=== PATIENT | male | born 1970 | race Caucasian/White ===

== ENCOUNTER 2017-03-24 05:41 | Emergency (ER) | payer BC ==
--- NOTE | 2017-03-24 06:05 | Emergency Department Record ---
History of Present Illness - General Chief complaint: Abscess Stated complaint: ABSCESS Time Seen by Provider: 03/24/17 05:57 Source: Patient Mode of Arrival: Ambulatory Limitations: No limitations - History of Present Illness Initial comments: 46 yo male presents to ED with a CC of swelling and pain to the right perineal region for the past 4 days. Patient the area started off as a small area of pain and has progressively worsened over the past 48 hours. Patient denies fevers, chills, nausea, or vomiting symptoms. Patient denies health problems at his baseline but admits that he has not been to a physician in many years. MD complaint: Abscess/boil Onset/Timin -: Days(s) Location: Buttocks, Genitals Severity: Mild Quality: Other Consistency: Constant Improves with: None Worsens with: None Context: None Associated symptoms: Denies other symptoms Treatments Prior to Arrival: None - Related Data Allergies Allergy/AdvReac Type Severity Reaction Status Date / Time No Known Allergies Allergy Unverified 11/12/15 13:18 Travel Screening - Travel/Exposure Within Last 30 Days Have you traveled within the last 30 days?: No - Travel/Exposure Within Last Year Have you traveled outside the [place] in the last year?: No - Additonal Travel Details Have you been exposed to anyone with a communicable illness?: No - Travel Symptoms Symptom Screening: None Review of Systems Constitutional: Denies: Chills, Fever, Malaise, Night sweats Eyes: Denies: Eye discharge, Eye pain ENT: Denies: Congestion, Ear pain, Epistaxis Respiratory: Denies: Cough, Dyspnea Cardiovascular: Denies: Chest pain, Dyspnea on exertion Endocrine: Denies: Fatigue, Heat or cold intolerance Gastrointestinal: Denies: Constipation, Diarrhea, Nausea, Vomiting Genitourinary: Denies: Incontinence, Retention, Testicular pain, Testicular mass Musculoskeletal: Denies: Arthralgia, Back pain, Gout, Joint swelling Skin: Reports: Other (swelling and pain to the left inguinal region). Denies: Bruising, Change in color Neurological: Denies: Abnormal gait, Confusion, Headache, Seizure Psychiatric: Denies: Anxiety Hematological/Lymphatic: Denies: Anemia, Blood Clots Past Medical History - SOCIAL HISTORY Smoking Status: Current every day smoker Alcohol Use: None Drug Use: None - RESPIRATORY Hx Respiratory Disorders: No - CARDIOVASCULAR Hx Cardio Disorders: No - NEURO Hx Neuro Disorders: No - GI Hx GI Disorders: No - Hx Genitourinary Disorders: No - ENDOCRINE Hx Endocrine Disorders: No - MUSCULOSKELETAL Hx Musculoskeletal Disorders: No - PSYCH Hx Psych Problems: No - HEMATOLOGY/ONCOLOGY Hx Hematology/Oncology Disorders: No Family Medical History Any Significant Family History?: No Physical Exam - General General Appearance: Alert, Oriented x3, Cooperative, No acute distress Limitations: No limitations - Head Head exam: Atraumatic, Normocephalic, Normal inspection Head exam detail: negative: Abrasion, Contusion, Freitas's sign, General tenderness, Hematoma, Laceration - Eye Eye exam: Normal appearance. negative: Conjunctival injection, Periorbital swelling, Periorbital tenderness, Scleral icterus - ENT Ear exam: negative: Auricular hematoma, Auricular trauma Nasal Exam: negative: Active bleeding, Discharge, Dried blood, Foreign body Mouth exam: negative: Drooling, Laceration, Muffled voice, Tongue elevation - Neck Neck exam: Normal inspection. negative: Meningismus, Tenderness - Respiratory Respiratory exam: Normal lung sounds bilaterally. negative: Rales, Respiratory distress, Rhonchi, Stridor - Cardiovascular Cardiovascular Exam: Regular rate, Normal rhythm, Normal heart sounds - GI/Abdominal GI/Abdominal exam: Soft. negative: Rebound, Rigid, Tenderness - Rectal Rectal exam: Deferred - exam: Other (STS and induration to the right perineal region c/w abscess extending into the scrotal region on examination, approximately 11x5 cm.). negative: Scrotal swelling, Testicular tenderness - Extremities Extremities exam: Normal inspection. negative: Calf tenderness, Pedal edema, Tenderness - Back Back exam: Denies: CVA tenderness (R), CVA tenderness (L) - Neurological Neurological exam: Alert, Normal gait, Oriented X3 - Psychiatric Psychiatric exam: Normal affect, Normal mood - Skin Skin exam: negative: Abrasion Type of lesion: negative: abrasion Course Vital Signs 03/24/17 05:45 Temperature 98.6 F Pulse Rate [ 115 H Pulse Ox Probe] Respiratory 20 Rate Blood Pressure 123/88 [Left Arm] Pulse Ox 95 - Reevaluation(s) Reevaluation #1: 03/24/17 06:35 Labs reviewed, WBC 16.8, Glucose 311. Labs reviewed and are otherwise grossly unremarkable for an acute process. Patient is going to CT at this time. Reevaluation #2: 03/24/17 07:41 CT Abdomen and Pelvis: Stranding into the right unguinal region extending into the scrotal region suggestive of cellulitis. Patient was updated on all results, Invanz ordered to initiate treatment, and [facility] has been contacted for transfer. Reevaluation #3: 03/24/17 07:56 Case was discussed with Dr. Hilliard, will accept transfer. Patient was updated on all results and the plan for transfer upon receipt of a bed number. Medical Decision Making - Lab Data Result diagrams: 03/24/17 06:05 03/24/17 06:05 Disposition Disposition: Transfer Clinical Impression: New onset type 2 diabetes mellitus, Cellulitis of perineum Disposition: Acute Care Hospital Transfer Transfer To: [facility] Reason For Transfer: Urological surgical consultation, New onset DM Accepting Physician: Babak Time Discussed w/Accepting Physician: 07:44 Condition: (2) Stable Forms: Patient Portal Access Time of Disposition: 07:44
[2017-03-24] MEDS: 0.9 % SODIUM CHLORIDE 1000ML 1,000 ML IV SCH (06:10)
[2017-03-24 06:18] LABS: BASO % 0.2 % (0-6); EOS % 0.8 % (0-6); GRAN % 77.1 % (47-80); HEMATOCRIT 48.5 % (42.0-52.0); HEMOGLOBIN 16.5 gm/dl (14.0-18.0); LYMPH % 10.4 % (16-45); MEAN CELL VOLUME 85.8 fl (81-97); MEAN CORPUSCULAR HEMOGLOBIN 29.2 pg (27-33); MEAN PLATELET VOLUME 10.5 fl (7.4-10.4); MONO % 11.5 % (0-9); PLATELET COUNT 186 K/uL (130-400); RED BLOOD COUNT 5.65 M/uL (4.40-5.70); WHITE BLOOD COUNT W/O DIFF 16.8 K/uL (4.2-12.2)
[2017-03-24 06:26] LABS: ALB/GLOB RATIO 1.2 (1.1-1.8); ALBUMIN 4.1 gm/dL (3.5-5.0); ALKALINE PHOSPHATASE 79 U/L (38-126); ALT/SGPT 31 U/L (21-72); ANION GAP 8.9 (7-16); AST/SGOT 14 U/L (17-59); BLOOD UREA NITROGEN 11 mg/dL (9-20); CARBON DIOXIDE 26.1 mmol/L (22-30); CREATININE 0.9 mg/dL (0.66-1.25); EST GLOMERULAR FILTRATION RATE > 60 ml/min; GLUCOSE,RANDOM 311 mg/dL (70-110); TOTAL PROTEIN 7.4 gm/dL (6.3-8.2)
[2017-03-24] MEDS: ERTAPENEM SODIUM 1 G in 0.9 % SODIUM CHLORIDE 100ML 100 ML IVPB ONE (07:34)
--- NOTE | 2017-03-25 08:03 | CT SCAN REPORT ---
EXAM: CT OF THE PELVIS WITH CONTRAST HISTORY: MASS BETWEEN LEGS. TECHNIQUE: Sequential axial images were obtained through the pelvis after intravenous administration of 100 ml of Omnipaque 300 contrast material. Sagittal and coronal reformatted images were performed. FINDINGS: There is scrotal edema. There is inflammatory change of the peroneum. No abnormal gas collection. The visceral structures within the pelvis appear normal. The osseous structures appear normal. IMPRESSION: FINDINGS SUGGESTIVE OF CELLULITIS INVOLVING THE PERONEUM AND SCROTUM. THERE ARE BILATERAL HYDROCELES. INCIDENTAL NOTE IS MADE OF BORDERLINE PROMINENT RIGHT INGUINAL LYMPH NODES. NO GAS COLLECTION IS PRESENT. JOB NUMBER: [id number] MTDD
== END 2017-03-24 11:02 | disposition short-term general hospital (02) ==
LOC: ER 05:41
DX: L03.315 Cellulitis of perineum (principal); E11.9 Type 2 diabetes mellitus without complications
CPT/HCPCS: 99285 ×2; 96374; 85025; 80053; 72193; Q9967; J1335; J7030

== ENCOUNTER 2017-06-06 17:14 | Emergency (ER) | payer BC ==
[2017-06-06] MEDS ORDERED: IBUPROFEN 600 MG TABLET PO ONE (17:58)
--- NOTE | 2017-06-06 18:11 | Emergency Department Record ---
History of Present Illness - General Chief complaint: Extremity Problem Stated complaint: RT ARM INJURY Time Seen by Provider: 06/06/17 17:55 Source: Patient Mode of Arrival: Ambulatory Limitations: No limitations - History of Present Illness Initial comments: The patient is here due to R arm pain. He was lifting a heavy object about an hour ago and felt pain and a tear in his R elbow bicep area anteriorly. Now he is unable to flex at his R elbow. Complaint: Extremity pain Onset/Timin -: Minutes(s) Location: Right, Arm History of Same: No Radiation: Distal Quality: Aching Consistency: Constant Improves with: Nothing Worsens with: Nothing Associated Symptoms: Denies other symptoms - Related Data Home Medications Medication Instructions Recorded Confirmed Last Taken Metformin HCl [Metformin HCl] 500 mg PO BID 06/06/17 06/06/17 06/06/17 Allergies Allergy/AdvReac Type Severity Reaction Status Date / Time No Known Allergies Allergy no Verified 06/06/17 18:17 allergies Travel Screening - Travel/Exposure Within Last 30 Days Have you traveled within the last 30 days?: No Review of Systems Constitutional: Denies: Chills, Fever Eyes: Denies: Eye discharge Past Medical History - SOCIAL HISTORY Smoking Status: Current every day smoker Alcohol Use: None Drug Use: None - RESPIRATORY Hx Respiratory Disorders: No - CARDIOVASCULAR Hx Cardio Disorders: No - NEURO Hx Neuro Disorders: No - GI Hx GI Disorders: No - Hx Genitourinary Disorders: No - ENDOCRINE Hx Endocrine Disorders: No - MUSCULOSKELETAL Hx Musculoskeletal Disorders: No - PSYCH Hx Psych Problems: No - HEMATOLOGY/ONCOLOGY Hx Hematology/Oncology Disorders: No Family Medical History Any Significant Family History?: No Physical Exam - General General Appearance: Alert, Cooperative, No acute distress - Head Head exam: Atraumatic, Normocephalic, Normal inspection - Eye Eye exam: Normal appearance, PERRL - Extremities Extremities exam: Normal capillary refill, Tenderness (There is tenderness at the distal anterior arm area just above the elbow. There is an obvious defect at the bicep insertion. The patient is not able to flex his R elbow.), Other ( The R arm is NVI distally.). negative: Normal inspection, Full ROM - Neurological Neurological exam: Alert. negative: Motor sensory deficit Course Vital Signs 06/06/17 17:25 Temperature 98.5 F Pulse Rate 96 H Respiratory 20 Rate Blood Pressure 143/89 Pulse Ox 98 - Reevaluation(s) Reevaluation #1: The patient is doing very well at this time. I did explain to him that it appears that he has a bicep tendon rupture. He will be referred to Dr. Nance and should be seen this week. I did consult with Dr. Nance and he can see him this week in [facility]. 06/06/17 18:32 Medical Decision Making - Data Complexity MDM Data: X-Ray Ordered and/or Reviewed (R elbow: No bony abnormality.) Disposition Disposition: Discharge Clinical Impression: Biceps tendon rupture Disposition: Home, Self-Care Condition: (1) Good Instructions: Tendon Rupture (ED) Additional Instructions: Please use ice to the R arm area if needed and take Tylenol or Motrin for pain. Please use the R arm sling at all times. Please see Dr. Nance in the [facility] later this week. Return to the ER for any problems. Referrals: [facility] [Provider Group] DORYS NANCE [DOCTOR OF OSTEOPATH] - Forms: Patient Portal Access Time of Disposition: 18:35 Quality - Quality Measures Quality Measures: N/A - Blood Pressure Screening View Details: Yes Does Patient Have Any of the Following: No Blood Pressure Classification: Hypertensive Reading Systolic Measurement: 131 Diastolic Measurement: 97 Screening for High Blood Pressure: < Pre-Hypertensive BP, F/U Documented > [ G8950] Pre-Hypertensive Follow-up Interventions: Referral to alternative/primary care provider.
--- NOTE | 2017-06-07 09:18 | RADIOLOGY REPORT ---
EXAM: RIGHT ELBOW, THREE VIEWS HISTORY: PAIN AND WEAKNESS POST LIFTING INJURY. TECHNIQUE: AP, oblique and lateral views of the right elbow were obtained. Comparison: None. Encounter: Initial. FINDINGS: There is normal bone mineralization. No acute fracture, dislocation , or destructive bone lesion is seen. Minor degenerative changes of the medial compartment are identified. The articular relations are otherwise maintained. No anterior nor posterior fat pad sign is seen. On the lateral view, the biceps brachii muscle appears somewhat prominent. This configuration can be seen with biceps brachii tendon rupture. IMPRESSION: 1. NO ACUTE FRACTURE NOR DISLOCATION. 2. SOFT TISSUE DENSITY PROMINENCE AT THE EXPECTED LEVEL OF THE BICEPS BRACHII MUSCLE AT THE MID HUMERUS LEVEL. THIS CONFIGURATION CAN BE SEEN WITH TENDON RUPTURE. JOB NUMBER: [id number] MTDD
== END 2017-06-06 18:44 | disposition home or self-care (01) ==
LOC: ER 17:14
DX: S46.211A Strain of muscle, fascia and tendon of other parts of biceps, right arm, initial encounter (principal); X50.0XXA Overexertion from strenuous movement or load, initial encounter
CPT/HCPCS: 99283

== ENCOUNTER 2017-06-16 08:15 | Day surgery (SDC) | payer BC ==
[~2017-06-16 08:15] MED LIST: ACETAMINOPHEN 1,000 MG/100 ML BTL IV ONE; CEFAZOLIN 2 Gram 2 GM/50 ML BAG IVPB ONE
[2017-06-16 08:49] LABS: BASO % 0.5 % (0-6); EOS % 2.7 % (0-6); HEMATOCRIT 52.3 % (42.0-52.0); LYMPH % 20.8 % (16-45); MEAN CELL VOLUME 86.3 fl (81-97); MEAN CORPUSCULAR HEMOGLOBIN 29.7 pg (27-33); MEAN CORPUSCULAR HGB CONC 34.4 g/dl (32-36); MEAN PLATELET VOLUME 10.1 fl (7.4-10.4); PLATELET COUNT 226 K/uL (130-400); RED BLOOD COUNT 6.06 M/uL (4.40-5.70); RED CELL DISTRIBUTION WIDTH 13.3 % (11.5-14.5); WHITE BLOOD COUNT W/O DIFF 11.1 K/uL (4.2-12.2)
[2017-06-16] MEDS ORDERED: HYDROCODONE/APAP 7.5/325MG TABLET PO ONE (14:23)
[2017-06-16] MEDS ORDERED: HYDROMORPHONE HCL 2 MG/ML VIAL IV ONE (14:23)
[2017-06-16] MEDS ORDERED: SEVOFLURANE 250 ML INH ONE (14:37)
[2017-06-16] MEDS ORDERED: LIDOCAINE 2% MDV (20MG/ML) 20ML VIAL IV ONE (14:37)
[2017-06-16] MEDS ORDERED: SUFENTANIL CITRATE 50 MCG/ML AMPUL IV ONE (14:37)
[2017-06-16] MEDS ORDERED: PROPOFOL 10 MG/ML VIAL IV ONE (14:37)
[2017-06-16] MEDS ORDERED: EPHEDRINE SULFATE 50 MG/ML ML IV ONE (14:37)
--- NOTE | 2017-06-21 14:10 | Operative Note ---
DATE OF SURGERY: 06/16/2017 Surgeon: Jack Tomlinson DO PREOPERATIVE DIAGNOSIS: Distal rupture of the biceps tendon of the right arm. POSTOPERATIVE DIAGNOSIS: Distal rupture of the biceps tendon of the right arm. OPERATION: Open repair of biceps tendon rupture, right arm (distal). DESCRIPTION OF PROCEDURE: This 46-year-old male was taken to the operating room, placed in the supine position on the operating room table. A general anesthetic was administered and the right upper extremity was elevated, prepped with Hibiclens, and draped in the usual sterile fashion. A incision was made in the anterior aspect of the elbow and dissection was carried down through the skin and subcutaneous tissue. Hemostasis obtained with the electrocautery. The fascia was incised and the biceps tendon immediately identified. A small seroma was present there and this was evacuated. The tendon was debrided to healthy-appearing tendon and a Krackow-type stitch was placed in the tendon with #2 FiberWire. Once this had been accomplished, we then directed our attention to the posterior aspect of the elbow, and the tendon was wrapped in a moist saline sponge. An incision was made and dissection was carried down through the skin and subcutaneous tissue overlying the midpoint between the radius and the ulna, and dissection was carried down through the muscle fascia which was divided in line with the skin incision. The muscle fibers were split over the tuberosity of the radius. Once this was easily identified, it was debrided and a reamer was used to ream a hole in the tuberosity for incorporation of the insertion of the biceps tendon. Two small holes were drilled in the back wall and a Hewson suture passer was used to pass through these holes. The sutures on the tendon were grasped and pulled through the elbow to their anatomic attachment. Then a single limb of each one of the sutures was passed through one of the two different drill holes in the opposite site of the radius opposite the tuberosity. Then, the arm was rotated to allow the tendon to fall into this previously made defect. The sutures were pulled tight to hold the tendon into the radius. Once this had been accomplished, the sutures were tied over a bony bridge on the opposite surface of the tuberosity, and then the suture was cut and removed. This gave us excellent hinduism of the anatomic position and alignment of the tendon. Both wounds were irrigated with lactated Ringer's solution and hemostasis obtained with the electrocautery. The dorsal fascia was closed with 4-0 Vicryl, subcutaneous tissue closed with the same suture, and skin with a running 4-0 nylon suture. The anterior incision was also closed with 4-0 Vicryl in the subcutaneous tissue and the skin closed with a running 4-0 nylon suture. Sterile dressings with plaster splint immobilization were applied with the elbow at 90 degrees and the forearm in mid pronation/supination. GROSS PATHOLOGY: This patient had a rupture of the biceps tendon off of the tuberosity of the radius which was repaired with a 2-incision technique as described above. ALBERTO
== END 2017-06-16 13:10 | disposition home or self-care (01) ==
LOC: SUR 08:15
PROVIDERS: ATTEND Orthopaedic Surgery
DX: S46.211A Strain of muscle, fascia and tendon of other parts of biceps, right arm, initial encounter (principal); E11.9 Type 2 diabetes mellitus without complications; Z79.84 Long term (current) use of oral hypoglycemic drugs
CPT/HCPCS: 23440; 01610; 85025; J1170; J0690

== ENCOUNTER 2017-09-08 08:33 | Emergency (ER) | payer BC, OTHER ==
[2017-09-08] MEDS ORDERED: IBUPROFEN 600 MG TABLET PO ONE (08:48)
--- NOTE | 2017-09-08 08:55 | Emergency Department Record ---
History of Present Illness - General Chief complaint: Pain Stated complaint: LT SHOULDER INJURY Time Seen by Provider: 09/08/17 08:41 Source: Patient Mode of Arrival: Ambulatory Limitations: No limitations - History of Present Illness Initial comments: The patient is here due to L shoulder pain. He slipped and fell on ice and landed directly on the L shoulder. Now it is quite painful and there is pain with ROM. He denies any other injury and did not hit his head or injure his neck. MD Complaint: Extremity pain, Joint pain Onset/Timin -: Minutes(s) Location: Left, Shoulder History of Same: No Severity scale (1-10): 5 Quality: Sharp Improves with: Nothing Worsens with: Exertion Associated Symptoms: Denies other symptoms - Related Data Home Medications Medication Instructions Recorded Confirmed Last Taken No Home Med [NO HOME MEDS] 09/08/17 09/08/17 Unknown Allergies Allergy/AdvReac Type Severity Reaction Status Date / Time No Known Allergies Allergy no Verified 06/06/17 18:17 allergies Travel Screening - Travel/Exposure Within Last 30 Days Have you traveled within the last 30 days?: No Review of Systems Constitutional: Denies: Chills, Fever Eyes: Denies: Eye discharge ENT: Denies: Congestion Respiratory: Denies: Cough, Dyspnea Past Medical History - SOCIAL HISTORY Smoking Status: Current every day smoker - RESPIRATORY Hx Respiratory Disorders: Yes Hx Bronchitis: Yes (not recently) - CARDIOVASCULAR Hx Cardio Disorders: No Hx Edema: Yes (rt hand due to elbow injury) - NEURO Hx Neuro Disorders: No Hx Neuropathy: Yes (nerve pain in feet occas) Comment:: has ear infection now-decreased hearing rt-to go to [facility] for RX - GI Hx GI Disorders: No Hx Wt Loss/Wt Gain: Yes (dieting -loss of 20 in 3 months) - Hx Genitourinary Disorders: No - ENDOCRINE Hx Endocrine Disorders: No Hx Diabetes: Yes Comment:: 100-108 last glucose checks/check QD - MUSCULOSKELETAL Hx Musculoskeletal Disorders: No Comment:: has bursitis rt shoulder/ has ruptured tendon rt elbow - PSYCH Hx Psych Problems: No - HEMATOLOGY/ONCOLOGY Hx Hematology/Oncology Disorders: No Family Medical History Any Significant Family History?: Yes Hx Alcohol Use: Grandparents Hx Heart Disease: Grandparents Hx HTN: Father Hx Liver Disease: Grandparents Hx Resp Disorders: Mother *Resp Comment: [facility] [place]- Physical Exam - General General Appearance: Alert, Oriented x3, Cooperative, No acute distress - Head Head exam: Atraumatic, Normocephalic, Normal inspection - Eye Eye exam: Normal appearance, PERRL - Neck Neck exam: Normal inspection, Full ROM. negative: Tenderness - Respiratory Respiratory exam: Normal lung sounds bilaterally. negative: Respiratory distress - Cardiovascular Cardiovascular Exam: Regular rate, Normal rhythm, Normal heart sounds - GI/Abdominal GI/Abdominal exam: Soft, Normal bowel sounds. negative: Tenderness - Extremities Extremities exam: Normal inspection, Normal capillary refill, Tenderness (There is tenderness at the L AC joint. ), Other (The L arm is NVI with normal pulses.) . negative: Full ROM (There is decreased L shoulder ROM due to pain. ) Course Vital Signs 09/08/17 08:37 Temperature 98.5 F Pulse Rate 89 Respiratory 16 Rate Blood Pressure 154/101 Pulse Ox 98 - Reevaluation(s) Reevaluation #1: I did discuss the xrays with the patient and the need for F/U if not better. He is to use an arm sling for 5 days and ice the L shoulder when possible. He is to see a PCP next week if not better. 09/08/17 09:31 Medical Decision Making - Data Complexity MDM Data: X-Ray Ordered and/or Reviewed (L shoulder: Neg.) Disposition Disposition: Discharge Clinical Impression: Sprain of left shoulder joint Qualifiers: Encounter type: initial encounter Shoulder sprain type: unspecified sprain Qualified Code(s): S43.402A - Unspecified sprain of left shoulder joint, initial encounter Disposition: Home, Self-Care Condition: (2) Stable Instructions: Shoulder Sprain (ED) Additional Instructions: Please take Tylenol or Motrin for pain. Please wear the arm sling for 5 days and ice the L shoulder when possible. Please see a Family doctor for recheck next week if not better. Return to the ER for any increased pain, swelling, or any weakness. Forms: Patient Portal Access Time of Disposition: 09:33 Quality - Quality Measures Quality Measures: N/A - Blood Pressure Screening View Details: Yes Does Patient Have Any of the Following: No Blood Pressure Classification: Hypertensive Reading Systolic Measurement: 154 Diastolic Measurement: 101 Screening for High Blood Pressure: < Pre-Hypertensive BP, F/U Documented > [ G8950] Pre-Hypertensive Follow-up Interventions: Referral to alternative/primary care provider.
--- NOTE | 2017-09-09 07:35 | RADIOLOGY REPORT ---
EXAM: LEFT SHOULDER COMPLETE HISTORY: FALL WITH TRAUMA TO SHOULDER. PAIN WITH MOTION. TECHNIQUE: Internal and external humerus rotation AP views of the left shoulder were obtained as well as a scapular Y-view. Comparison: None. Encounter: Initial. FINDINGS: There is normal bone mineralization. No fracture, dislocation, or destructive bone lesion is seen. The articular relations are maintained and no periarticular soft tissue abnormality is identified. IMPRESSION: NORMAL LEFT SHOULDER EXAMINATION. JOB NUMBER: [id number] MTDD
== END 2017-09-08 09:40 | disposition home or self-care (01) ==
LOC: ER 08:33
DX: S43.402A Unspecified sprain of left shoulder joint, initial encounter (principal); W00.0XXA Fall on same level due to ice and snow, initial encounter; Y99.0 Civilian activity done for income or pay
CPT/HCPCS: 99283

== ENCOUNTER 2017-09-12 07:32 | Emergency (ER) | payer SELFPAY ==
--- NOTE | 2017-09-12 07:51 | Emergency Department Record ---
History of Present Illness - General Chief complaint: Pain Stated complaint: SHOULDER PAIN WORSE Time Seen by Provider: 09/12/17 07:34 Source: Patient Mode of Arrival: Ambulatory Limitations: No limitations - History of Present Illness Initial comments: The patient is here after falling on his L shoulder 4 days ago. He was seen in the ER and had a neg xray but is still having pain in the shoulder. The pain increases with ROM and he would like something stronger to help him sleep. MD Complaint: Extremity pain Onset/Timin -: Days(s) Location: Left, Shoulder History of Same: Yes Severity scale (1-10): 6 Quality: Aching Consistency: Constant Improves with: Nothing Worsens with: Nothing Associated Symptoms: Denies other symptoms - Related Data Previous Rx's Medication Instructions Recorded Hydrocodone/Acetaminophen [[place] 1 - 2 each PO .EVERY 4-6 HRS PRN 09/12/17 5-325 Tablet] #20 tablet Allergies Allergy/AdvReac Type Severity Reaction Status Date / Time No Known Allergies Allergy no Verified 06/06/17 18:17 allergies Travel Screening - Travel/Exposure Within Last 30 Days Have you traveled within the last 30 days?: No Review of Systems Constitutional: Denies: Chills, Fever Eyes: Denies: Eye discharge ENT: Denies: Congestion Respiratory: Denies: Cough, Dyspnea Past Medical History - SOCIAL HISTORY Smoking Status: Current every day smoker Alcohol Use: None Drug Use: None - RESPIRATORY Hx Respiratory Disorders: Yes Hx Bronchitis: Yes (not recently) - CARDIOVASCULAR Hx Cardio Disorders: No Hx Edema: Yes (rt hand due to elbow injury) - NEURO Hx Neuro Disorders: No Hx Neuropathy: Yes (nerve pain in feet occas) Comment:: has ear infection now-decreased hearing rt-to go to [facility] for RX - GI Hx GI Disorders: No Hx Wt Loss/Wt Gain: Yes (dieting -loss of 20 in 3 months) - Hx Genitourinary Disorders: No - ENDOCRINE Hx Endocrine Disorders: No Hx Diabetes: Yes Comment:: 100-108 last glucose checks/check QD - MUSCULOSKELETAL Hx Musculoskeletal Disorders: No Comment:: has bursitis rt shoulder/ has ruptured tendon rt elbow - PSYCH Hx Psych Problems: No - HEMATOLOGY/ONCOLOGY Hx Hematology/Oncology Disorders: No Family Medical History Any Significant Family History?: Yes Hx Alcohol Use: Grandparents Hx Heart Disease: Grandparents Hx HTN: Father Hx Liver Disease: Grandparents Hx Resp Disorders: Mother *Resp Comment: anil [place]- Physical Exam - General General Appearance: Alert, Oriented x3, Cooperative, No acute distress - Head Head exam: Atraumatic, Normocephalic, Normal inspection - Eye Eye exam: Normal appearance, PERRL - Neck Neck exam: Normal inspection, Full ROM. negative: Tenderness - Respiratory Respiratory exam: Normal lung sounds bilaterally. negative: Respiratory distress - Cardiovascular Cardiovascular Exam: Regular rate, Normal rhythm, Normal heart sounds - Extremities Extremities exam: Normal inspection, Tenderness (There is diffuse tenderness to the anterior L shoulder.), Other (The L arm is NVI.). negative: Full ROM ( There is decreased flexion, extension and abduction due to pain.), Joint swelling Course Vital Signs 09/12/17 07:34 Temperature 97.5 F L Pulse Rate 85 Respiratory 18 Rate Blood Pressure 141/84 Pulse Ox 100 - Reevaluation(s) Reevaluation #1: I did explain to the patient the need for F/U with his Occupational Health provider for further eval. 09/12/17 07:55 Disposition Disposition: Discharge Clinical Impression: Shoulder injury Qualifiers: Encounter type: sequela Laterality: left Qualified Code(s): S49.92XS - Unspecified injury of left shoulder and upper arm, sequela Disposition: Home, Self-Care Condition: (2) Stable Instructions: Rotator Cuff Injury (ED) Additional Instructions: Please take the [place] if needed when not working or driving. Please follow up with your Occupational health provider for further treatment and possibly to have an MRI performed. Prescriptions: Hydrocodone/Acetaminophen [[place] 5-325 Tablet] 1 - 2 each PO .EVERY 4-6 HRS PRN #20 tablet PRN Reason: Pain Forms: Patient Portal Access Time of Disposition: 07:51 Quality - Quality Measures Quality Measures: N/A - Blood Pressure Screening View Details: Yes Does Patient Have Any of the Following: No Blood Pressure Classification: Pre-Hypertensive BP Reading Systolic Measurement: 141 Diastolic Measurement: 84 Screening for High Blood Pressure: < Pre-Hypertensive BP, F/U Documented > [ G8950] Pre-Hypertensive Follow-up Interventions: Referral to alternative/primary care provider.
== END 2017-09-12 07:56 | disposition home or self-care (01) ==
LOC: ER 07:32
DX: S49.92XA Unspecified injury of left shoulder and upper arm, initial encounter (principal); W19.XXXA Unspecified fall, initial encounter
CPT/HCPCS: 99282

== ENCOUNTER 2018-01-31 20:51 | Emergency (ER) | payer BC, OTHER ==
--- NOTE | 2018-01-31 21:04 | Emergency Department Record ---
History of Present Illness - General Chief Complaint: Fall Injury Stated Complaint: LT ANKLE & RT WRIST INJURY Time Seen by Provider: 01/31/18 21:00 Source: Patient Mode of Arrival: Ambulatory Limitations: No limitations - History of Present Illness Initial Comments: 47 yo male presents to ED for evaluation of right wrist pain following a trip and fall that occurred around none hours ago. Patient also reports swelling to the left ankle (inversion injury), but reports that he has been weight bearing normally. Patient denies other injury, reports taking Motrin 800 mg that improved his symptoms as well. Patient denies health problems other than DM II and shoulder injury. MD Complaint: Fall Onset/Timin -: Hour(s) Fall From: From height (distance) Place Fall Occurred: Home Loss of Consciousness: None Prolonged Down Time?: No Symptoms Prior to Fall: None Location - Extremities: Right: Forearm Severity: Moderate Quality: Aching Associated Symptoms: Denies - [place] Coma Scale Eye Response: (4) Open spontaneously Motor Response: (6) Obeys commands Verbal Response: (5) Oriented Michelle Total: 15 - Related Data Allergies Allergy/AdvReac Type Severity Reaction Status Date / Time No Known Allergies Allergy no Verified 01/31/18 20:59 allergies Travel Screening - Travel/Exposure Within Last 30 Days Have you traveled within the last 30 days?: No - Travel/Exposure Within Last Year Have you traveled outside the [place] in the last year?: No - Additonal Travel Details Have you been exposed to anyone with a communicable illness?: No - Travel Symptoms Symptom Screening: None Review of Systems Constitutional: Denies: Chills, Fever, Malaise, Night sweats Eyes: Denies: Eye discharge, Eye pain ENT: Denies: Congestion, Ear pain, Epistaxis Respiratory: Denies: Cough, Dyspnea Cardiovascular: Denies: Chest pain, Dyspnea on exertion Endocrine: Denies: Fatigue Gastrointestinal: Denies: Abdominal pain, Nausea, Vomiting Genitourinary: Denies: Incontinence, Retention Musculoskeletal: Reports: Arthralgia, Joint swelling. Denies: Back pain, Gout Skin: Denies: Bruising, Change in color, Rash Neurological: Denies: Abnormal gait, Confusion, Headache, Seizure Psychiatric: Denies: Anxiety Hematological/Lymphatic: Denies: Anemia, Blood Clots Past Medical History - SOCIAL HISTORY Smoking Status: Current every day smoker Alcohol Use: None Drug Use: None - RESPIRATORY Hx Respiratory Disorders: Yes Hx Bronchitis: Yes (not recently) - CARDIOVASCULAR Hx Cardio Disorders: No Hx Edema: Yes (rt hand due to elbow injury) - NEURO Hx Neuro Disorders: No Hx Neuropathy: Yes (nerve pain in feet occas) Comment:: has ear infection now-decreased hearing rt-to go to [place] RX - GI Hx GI Disorders: No Hx Wt Loss/Wt Gain: Yes (dieting -loss of 20 in 3 months) - Hx Genitourinary Disorders: No - ENDOCRINE Hx Endocrine Disorders: No Hx Diabetes: Yes Comment:: 100-108 last glucose checks/check QD - MUSCULOSKELETAL Hx Musculoskeletal Disorders: No Comment:: has bursitis rt shoulder/ has ruptured tendon rt elbow - PSYCH Hx Psych Problems: No - HEMATOLOGY/ONCOLOGY Hx Hematology/Oncology Disorders: No Family Medical History Any Significant Family History?: Yes Hx Alcohol Use: Grandparents Hx Heart Disease: Grandparents Hx HTN: Father Hx Liver Disease: Grandparents Hx Resp Disorders: Mother *Resp Comment: guillion [place]- Physical Exam - General General Appearance: Alert, Oriented x3, Cooperative, Mild distress Limitations: No limitations - Head Head exam: Atraumatic, Normocephalic, Normal inspection Head exam detail: negative: Abrasion, Contusion, Freitas's sign, General tenderness, Hematoma, Laceration - Eye Eye exam: Normal appearance. negative: Conjunctival injection, Periorbital swelling, Periorbital tenderness, Scleral icterus - ENT Ear exam: negative: Auricular hematoma, Auricular trauma Nasal Exam: negative: Active bleeding, Discharge, Dried blood, Foreign body Mouth exam: negative: Drooling, Laceration, Tongue elevation - Neck Neck exam: Normal inspection. negative: Meningismus, Tenderness - Respiratory Respiratory exam: Normal lung sounds bilaterally. negative: Rales, Respiratory distress, Rhonchi, Stridor - Cardiovascular Cardiovascular Exam: Regular rate, Normal rhythm, Normal heart sounds - GI/Abdominal GI/Abdominal exam: Soft. negative: Rebound, Rigid, Tenderness - Rectal Rectal exam: Deferred - exam: Deferred - Extremities Extremities exam: Tenderness, Other (TTP over the right wrist, mild STS present , ROM present. Mild STS to the lateral left ankle on examination, weight bears normally). negative: Calf tenderness, Pedal edema - Back Back exam: Denies: CVA tenderness (R), CVA tenderness (L) - Neurological Neurological exam: Alert, Normal gait, Oriented X3 - Psychiatric Psychiatric exam: Normal affect, Normal mood - Skin Skin exam: Normal color. negative: Abrasion Type of lesion: negative: abrasion Course Vital Signs 01/31/18 20:59 Temperature 98 F Pulse Rate [ 92 H Pulse Ox Probe] Respiratory 20 Rate Blood Pressure 134/80 [Left Arm] Pulse Ox 95 - Reevaluation(s) Reevaluation #1: 01/31/18 21:46 Right wrist: Comminuted, minimally displaced fracture distal radius Ulnar styloid fracture Patient was updated on his radiology result, will splint with instructed to follow-up with his orthopedist in [place] (has the name at home) in 3-5 days as directed. Disposition Disposition: Discharge Clinical Impression: Wrist fracture, right Qualifiers: Encounter type: initial encounter Fracture type: closed Qualified Code(s): S62.101A - Fracture of unspecified carpal bone, right wrist, initial encounter for closed fracture Disposition: Home, Self-Care Condition: (2) Stable Instructions: Wrist Fracture in Adults (ED) Additional Instructions: Return to ED if your symptoms worsen or if you have any concerns. Continue Motrin 800 mg as directed. Follow-up with your orthopedist in [place] in 3-5 days as directed. Forms: Patient Portal Access Time of Disposition: 21:48 Quality - Quality Measures Quality Measures: N/A - Blood Pressure Screening Does Patient Have Any of the Following: No Blood Pressure Classification: Pre-Hypertensive BP Reading Systolic Measurement: 134 Diastolic Measurement: 80 Screening for High Blood Pressure: < Pre-Hypertensive BP, F/U Documented > [ G8950] Pre-Hypertensive Follow-up Interventions: Referral to alternative/primary care provider.
--- NOTE | 2018-02-01 13:59 | RADIOLOGY REPORT ---
EXAM: RIGHT WRIST HISTORY: PATIENT FELL OFF PATIO AND ROLLED ANKLE AND THEN FELL ON RIGHT WRIST WITH PAIN AND SWELLING RIGHT WRIST. TECHNIQUE: Four views of the right wrist were obtained. Comparison: No prior right wrist series. Encounter: Initial. FINDINGS: There is an essentially undisplaced fracture of the ulnar styloid. There is a somewhat unusual fracture of the distal shaft and metaphysis of the radius with the fracture most evident along the ulnar aspect of the distal radius as seen on the AP view and particularly along the anterior aspect of the distal radius on the lateral view. The fracture probably extends completely through the radius from the dorsal to the ventral aspect of the distal radius, but is not clearly seen to extend through the radial border of the radius, appearing to involve primarily the ulnar aspect of the distal radius in the AP projections. This could be further clarified with a CT scan if clinically warranted. There is some soft tissue swelling about the distal forearm and wrist predominantly along the radial aspect. No dislocation at the wrist evident. IMPRESSION: 1. SOFT TISSUE SWELLING AT THE WRIST PARTICULARLY ALONG THE RADIAL ASPECT. 2. VERY MINIMALLY DISPLACED FRACTURE OF THE ULNAR STYLOID. 3. MINIMALLY DISPLACED FRACTURE OF THE DISTAL RADIUS IN A SOMEWHAT UNUSUAL APPEARANCE PROBABLY INVOLVING BOTH THE DORSAL AND VENTRAL ASPECTS OF THE RADIUS AND ALSO ALONG THE ULNAR ASPECT OF THE RADIUS, BUT NOT CLEARLY SEEN TO EXTEND THROUGH THE RADIAL ASPECT OF THE DISTAL RADIUS IN THE AP PROJECTION. JOB NUMBER: [id number] [facility]
== END 2018-01-31 22:17 | disposition home or self-care (01) ==
LOC: ER 20:51
DX: S52.511A Displaced fracture of right radial styloid process, initial encounter for closed fracture (principal); M25.572 Pain in left ankle and joints of left foot; E11.9 Type 2 diabetes mellitus without complications; F17.210 Nicotine dependence, cigarettes, uncomplicated; Y92.009 Unspecified place in unspecified non-institutional (private) residence as the place of occurrence of the external cause
CPT/HCPCS: 99283